=== PATIENT | female | born 1980 | race American Indian/Alaskan Native ===

== ENCOUNTER 2017-04-27 15:08 | Emergency (ER) | payer MEDICARE ==
[2017-04-27 16:17] LABS: Basophils # (Auto) 0.1 K/mm3 (0.0-0.1); Basophils % (Auto) 0.5 % (0.0-1.8); Eosinophils # (Auto) 0.1 K/mm3 (0.0-0.4); Eosinophils % (Auto) 0.8 % (0.0-4.3); Hemoglobin 9.2 gm/dl (10.1-14.3); Lymphocytes % (Auto) 22.3 % (13.4-35.0); Mean Corpuscular HGB Conc 31 % (30-34); Monocytes # (Auto) 0.6 K/mm3 (0.0-0.8); Monocytes % (Auto) 4.6 % (0.0-7.3); Platelet Count 335 K/mm3 (140-440); Red Blood Count 4.83 M/mm3 (3.65-5.03)
[2017-04-27 16:18] LABS: Mean Corpuscular Hemoglobin 19 pg (28-32); Mean Corpuscular Volume 62 fl (79-97)
[2017-04-27 16:22] LABS: Bacteria,Urine 1+ /HPF (Negative); Bilirubin,Urine NEG (Negative); Blood,Urine SM (Negative); Color,Urine Yellow (Yellow); Mucus,Urine FEW /HPF
[2017-04-27 16:30] LABS: HCG Qualitative,Urine Negative (Negative)
[2017-04-27 16:36] LABS: BUN/Creatinine Ratio 8; Blood Urea Nitrogen 7 mg/dL (7-17); Calcium 9.2 mg/dL (8.4-10.2); Hemolysis Index 0
[2017-04-27 16:47] LABS: Amphetamine Screen,Urine PRESUMPTIVE NEGATIVE; Benzodiazepines Screen,Urine PRESUMPTIVE NEGATIVE; Methadone Screen,Urine PRESUMPTIVE NEGATIVE; Opiate Screen,Urine PRESUMPTIVE NEGATIVE
[2017-04-27 17:01] LABS: Cannabinoid Screen,Urine PRESUMPTIVE POSITIVE; Cocaine Screen,Urine PRESUMPTIVE POSITIVE
[2017-04-27 21:20] VITALS: BP 133/87
== END 2017-04-28 01:36 | disposition left against medical advice (07) ==
LOC: ED 15:08
DX: Z03.89 Encounter for observation for other suspected diseases and conditions ruled out (principal); Z53.21 Procedure and treatment not carried out due to patient leaving prior to being seen by health care provider
CPT/HCPCS: 36415; 80048; 80307; 81001; 81025; 85025; G0480; 80320

== ENCOUNTER 2017-04-30 17:19 | Emergency (ER) | payer MEDICARE ==
[2017-04-30 17:45] LABS: Basophils # (Auto) 0.1 K/mm3 (0.0-0.1); Basophils % (Auto) 0.9 % (0.0-1.8); Eosinophils # (Auto) 0.1 K/mm3 (0.0-0.4); Eosinophils % (Auto) 0.9 % (0.0-4.3); Hematocrit 31.8 % (30.3-42.9); Hemoglobin 9.8 gm/dl (10.1-14.3); Lymphocytes # (Auto) 3.7 K/mm3 (1.2-5.4); Lymphocytes % (Auto) 29.5 % (13.4-35.0); Mean Corpuscular HGB Conc 31 % (30-34); Monocytes % (Auto) 7.6 % (0.0-7.3); Platelet Count 326 K/mm3 (140-440); Red Blood Count 5.22 M/mm3 (3.65-5.03)
[2017-04-30 17:48] LABS: Mean Corpuscular Hemoglobin 19 pg (28-32); Mean Corpuscular Volume 61 fl (79-97); Red Cell Distribution Width 21.9 % (13.2-15.2)
[2017-04-30 18:00] LABS: Alanine Aminotransferase 10 units/L (7-56); Albumin 4.3 g/dL (3.9-5); BUN/Creatinine Ratio 13; Blood Urea Nitrogen 13 mg/dL (7-17); Calcium 9.6 mg/dL (8.4-10.2); Hemolysis Index 6
[2017-04-30 18:52] LABS: HCG Qualitative,Urine Negative (Negative)
[2017-04-30 18:54] LABS: Bacteria,Urine 1+ /HPF (Negative); Bilirubin,Urine NEG (Negative); Blood,Urine NEG (Negative); Color,Urine Yellow (Yellow); Mucus,Urine FEW /HPF; Nitrite,Urine POS (Negative); Protein,Urine <15 mg/dL mg/dL (Negative)
[2017-05-01] MEDS ORDERED: PEPCID IV ONE (10:49)
[2017-05-01] MEDS ORDERED: NACL 0.9% 1000 ML 1,000 ML IV ONE (10:49)
[2017-05-01] MEDS ORDERED: ZOFRAN IV ONE (10:49)
--- NOTE | 2017-05-01 11:55 | Emergency Department Report ---
ED Abdominal Pain HPI - General Chief Complaint: Abdominal Pain Stated Complaint: UPSET STOMACH/VOMITING Time Seen by Provider: 05/01/17 10:23 Source: patient Mode of arrival: Ambulatory Limitations: No Limitations - History of Present Illness Initial Comments: Patient is a 37-year-old [place] female who is presenting with nausea vomiting for the past several days. Patient was here on the 24th after ingesting ecstasy. Patient has some stomach upset at that time. Patient states this is continued she is unable to keep down food or drink. Patient states she is dry heaving at this time. Patient also states she has had some diarrhea that is black in color. Patient has some general abdominal crampiness that is a 7 out of 10 in severity. Patient denies any syncope or shortness of breath and near- syncope fatigue fevers chills at this time. Location: diffuse Radiation: none Severity scale (0 -10): 7 Quality: cramping, aching Consistency: constant Improves With: nothing Worsens With: nothing - Related Data Previous Rx's Medication Instructions Recorded Last Taken Type Ondansetron [Zofran Odt] 4 mg PO Q8HR #10 tab.rapdis 05/01/17 Unknown Rx Sucralfate [Carafate] 1 gm PO Q6HR 10 Days udc 05/01/17 Unknown Rx metroNIDAZOLE [Flagyl] 500 mg PO Q12HR 7 Days tab 05/01/17 Unknown Rx traMADol [Ultram] 50 mg PO Q6HR PRN #12 tablet 05/01/17 Unknown Rx Allergies Allergy/AdvReac Type Severity Reaction Status Date / Time No Known Allergies Allergy Unverified 04/27/17 15:32 ED Review of Systems ROS: Stated complaint: UPSET STOMACH/VOMITING Other details as noted in HPI Comment: All other systems reviewed and negative ED Past Medical Hx - Past Medical History Previous Medical History?: No - Social History Smoking Status: Current Every Day Smoker Substance Use Type: Alcohol, Prescribed - Medications Home Medications: Home Medications Medication Instructions Recorded Confirmed Last Taken Type Ondansetron [Zofran Odt] 4 mg PO Q8HR #10 tab.rapdis 05/01/17 Unknown Rx Sucralfate [Carafate] 1 gm PO Q6HR 10 Days udc 05/01/17 Unknown Rx metroNIDAZOLE [Flagyl] 500 mg PO Q12HR 7 Days tab 05/01/17 Unknown Rx traMADol [Ultram] 50 mg PO Q6HR PRN #12 tablet 05/01/17 Unknown Rx ED Physical Exam - General Limitations: No Limitations General appearance: alert, in no apparent distress - Head Head exam: Present: atraumatic, normocephalic - Eye Eye exam: Present: normal appearance - ENT ENT exam: Present: mucous membranes moist - Neck Neck exam: Present: normal inspection - Respiratory Respiratory exam: Present: normal lung sounds bilaterally. Absent: respiratory distress - Cardiovascular Cardiovascular Exam: Present: regular rate, normal rhythm. Absent: systolic murmur, diastolic murmur, rubs, gallop - GI/Abdominal GI/Abdominal exam: Present: soft, tenderness, normal bowel sounds. Absent: distended, guarding, rebound - Rectal Rectal exam: Present: deferred - Extremities Exam Extremities exam: Present: normal inspection - Back Exam Back exam: Present: normal inspection - Neurological Exam Neurological exam: Present: alert, oriented X3 - Psychiatric Psychiatric exam: Present: normal affect, normal mood - Skin Skin exam: Present: warm, dry, intact, normal color. Absent: rash ED Course Vital Signs 04/30/17 05/01/17 05/01/17 17:24 01:47 11:42 Temperature 98.1 F 99.0 F Pulse Rate 76 84 Respiratory 18 18 14 Rate Blood Pressure 135/94 140/100 Blood Pressure [Right] O2 Sat by Pulse 98 99 Oximetry 05/01/17 12:02 Temperature 98.3 F Pulse Rate 67 Respiratory 14 Rate Blood Pressure Blood Pressure 143/78 [Right] O2 Sat by Pulse 99 Oximetry ED Medical Decision Making - Lab Data Result diagrams: 04/30/17 17:31 04/30/17 17:31 - Medical Decision Making Patient is a 37-year-old Female who is presenting with epigastric discomfort and nausea and vomiting and some R colored diarrhea. The patient's hemoglobin is within normal limits essentially higher than her hemoglobin several days ago when she was here in the emergency department. Patient deferred rectal exam. Patient received fluids and nausea medicine is feeling better. Patient be discharged home with GI follow-up as well as Carafate Zofran. Patient also was mentioned that she thinks she may have a bacterial vaginosis and is requesting Flagyl will be given as well. Critical care attestation.: If time is entered above; I have spent that time in minutes in the direct care of this critically ill patient, excluding procedure time. ED Disposition Clinical Impression: Cocaine abuse, Vaginosis Gastritis Qualifiers: Gastritis type: unspecified gastritis Chronicity: acute Gastritis bleeding: presence of bleeding unspecified Qualified Code(s): K29.00 - Acute gastritis without bleeding Abdominal pain Qualifiers: Abdominal location: epigastric Qualified Code(s): R10.13 - Epigastric pain Disposition: TO HOME OR SELFCARE Is pt being admited?: No Does the pt Need Aspirin: No Condition: Stable Instructions: Abdominal Pain (ED), Bacterial Vaginosis (ED), Gastritis (ED) Prescriptions: metroNIDAZOLE [Flagyl] 500 mg PO Q12HR 7 Days tab Ondansetron [Zofran Odt] 4 mg PO Q8HR #10 tab.rapdis Sucralfate [Carafate] 1 gm PO Q6HR 10 Days udc traMADol [Ultram] 50 mg PO Q6HR PRN #12 tablet PRN Reason: Pain Referrals: PAN CALIXTO MD [Staff Physician] - 3-5 Days
[2017-05-01 12:03] VITALS: BP 143/78
--- NOTE | 2017-05-01 13:35 | Cat Scan Report ---
FINAL REPORT EXAM: CT ABDOMEN PELVIS W CON HISTORY: NVD possible GI bleeding TECHNIQUE: CT of the abdomen and pelvis with IV contrast. Coronal and sagittal reconstructed imaging provided. PRIORS: None currently available. FINDINGS: ABDOMEN: Hepatomegaly. Mild fatty liver. No suspicious enhancement or lesions. Gallbladder, stomach, spleen, pancreas, and adrenals are unremarkable. Kidneys: Unremarkable. Symmetrical cortical enhancement. No hydronephrosis. No suspicious enhancement or lesions. There is no abdominal aortic aneurysm. No dissection. IVC is unremarkable. There is no periaortic or retroperitoneal adenopathy or mass. [id number] stool. No wall thickening or inflammatory changes. Terminal ilium is unremarkable. Appendix is normal. Small bowel loops are unremarkable. No obstructive pattern. No free air. No free fluid. Mesentery is unremarkable. Fat-containing umbilical hernia without strangulation. PELVIS: Heterogeneous lobulated uterus may be related to fibroids. Small amount of free fluid cul-de-sac. Bladder is unremarkable. There is no pelvic mass or adenopathy. Inguinal regions are unremarkable. Bones: No suspicious osseous lesions on this limited examination of the skeleton. Metastatic disease better evaluated with bone scan. IMPRESSION: Fatty enlarged liver. No distinct lesions. No acute findings.
== END 2017-05-01 14:10 | disposition home or self-care (01) ==
LOC: ED 17:19
DX: K29.00 Acute gastritis without bleeding (principal); F14.10 Cocaine abuse, uncomplicated; R10.13 Epigastric pain; N76.0 Acute vaginitis; F17.200 Nicotine dependence, unspecified, uncomplicated
CPT/HCPCS: 36415; 74177; 80053; 81001; 81025; 85025; 96361; 96374; 96375; 99284; J2405; J7030; Q9967

== ENCOUNTER 2017-08-12 02:25 | Emergency (ER) | payer MEDICARE | END 2017-08-12 03:00 | disposition left against medical advice (07) | LOC: ED 02:25 | DX: R09.89 Other specified symptoms and signs involving the circulatory and respiratory systems (principal); Z53.21 Procedure and treatment not carried out due to patient leaving prior to being seen by health care provider ==